=== PATIENT | male | born 1965 | race Caucasian/White ===

== ENCOUNTER 2024-07-09 11:35 | Day surgery (SDC) | payer OTHER, SELFPAY ==
[2024-07-09] VITALS (13 sets, daily range): BP systolic 103–165; BP diastolic 64–96; BMI 27.5
--- NOTE | 2024-07-09 08:19 | ED.GENMED ---
History of Present Illness
General
Chief Complaint: Abdominal Pain
Source: patient
Exam Limitations: none
Time Seen by Provider: 07/09/24 08:04
Nursing documentation reviewed up to this point in time: agreed with
History of Present Illness
History of Present Illness:
58-year-old male presents to the ER complaining of right lower quadrant pain. Patient reports he started with more of a generalized abdominal pain yesterday in the morning. He was nauseous with this pain and had a temp of 99. He reports today it
seems to localize to the right lower quadrant. He reports he is very uncomfortable he has. He is nauseous. no food since last night at 7 pm lst night. Pt has been sipping on water throughout the night.
Past History
Past History
ED Past Medical History: HTN, Psychiatric (Anxiety, and panic disorder) and Other (History of a hernia)
ED Past Surgical History: Other (Hernia repair and vasectomy)
Social History
Tobacco: Former smoker
Personal:
Living: with family
Employment: Student
Review of Systems
Review of Systems
Allergies reviewed?: Yes
All Other Systems: ROS reviewed and negative except as documented in HPI and ROS
Constitutional: Reports no symptoms; Denies fever
Respiratory: Reports no symptoms
Cardiac: Reports no symptoms
ABD/GI: Reports abdominal pain and nausea; Denies vomiting, diarrhea or constipated
: Reports no symptoms
Skin: Reports no symptoms
Neurological: Reports no symptoms
Psychiatric: Reports no symptoms
Phy Exam
General Physical Exam
General Presentation: no apparent distress
General age: appears stated age
General Skin: warm and dry
General Habitus: normal
General Mental: alert
General Hydration: appears well hydrated
Gastrointestinal Exam
Gastrointestinal Exam: soft and other (tender throughout the right lq region )
Neurological Exam
Neurological Exam: alert and oriented x3
Musculoskeletal Exam
Musculoskeletal Exam: full ROM
Skin Exam
Skin Exam: normal color and warm/dry
Psychiatric Exam
Psychiatric Exam: normal mood/affect
Course
Orders/Labs/Results
Orders:
Orders
07/09/24 Breakfast
NPO
Allow oral meds: No
Allow clear liquids: No
07/09/24 08:18
IV Insert/Care/Rem.- Treatment PRN
0.9% Sodium Chloride 1000 ml [Nss] 1,000 ml IV BOLUS
Morphine Sulfate 4 mg IV NOW STA
Ondansetron Injectable [Zofran] 4 mg IV NOW STA
07/09/24 08:19
Morphine Sulfate 4 mg .ROUTE .STK-MED ONE
Ondansetron Injectable [Zofran] 4 mg .ROUTE .STK-MED ONE
07/09/24 08:22
CT Abd/Pel (IV only)-DH only Urgent
Comment:
Reason For Exam: rlq pain
07/09/24 08:28
Complete Blood Count/With Diff Urgent
Comprehensive Metabolic Panel Urgent
Lipase Urgent
07/09/24 09:26
Lactic Acid Urgent
Urinalysis Reflex To Culture Urgent
Date Specimen was Collected: 07/09/24
Time Specimen was Collected: 09:19
07/09/24 10:18
HYDROmorphone [Dilaudid] 1 mg .ROUTE .STK-MED ONE
07/09/24 10:19
HYDROmorphone [Dilaudid] 1 mg IV NOW STA
07/09/24 10:37
Pneumatic Compression Sleeves As Directed
Type: Knee high
Teds [Anti-embolism (SRIRAM) Hose] As Directed
Type: Knee high
DX Deep Vein Thrombosis Video Routine
07/09/24 11:08
Midazolam HCl [Versed] 2 mg .ROUTE .STK-MED ONE
07/09/24 11:15
Normosol (Mult Electrolytes) [Normosol-R/Plasmalyte-A] 1,000 ml IV 100 mls/hr
07/09/24 11:21
Admit/Transfer Patient As Directed
Co-Sign Provider:
Level of Care: Observation services
Assign to:: Medical/Surgical
Physician / Group: Yadiel Godoy
Diagnosis: appendicitis
PRN Pain Medication Management As Directed
May give lesser potent ordered pain med per pt: Yes
preference::
Protocol:: Medication orders for pain may be administered in a
manner that supports deferring to patient preference
when the pt is:
- Requesting an ordered lesser potent pain medication.
Least to most potent pain medications are defined
as: acetaminophen < NSAID < tramadol < opioids
(morphine, oxycodone, hydromorphone).
- Requesting a lesser dose of the same medication IF
ORDERED.
- Requesting a less intrusive route of administration
if both routes are prescribed by the provider (PO <
IV).
07/09/24 11:22
Dexamethasone Sod Phosphate [Decadron] 20 mg .ROUTE .STK-MED ONE
Fentanyl Citrate/Pf [Sublimaze] 100 mcg .ROUTE .STK-MED ONE
Lidocaine 2% Mpf [Xylocaine Mpf 2%] 100 mg .ROUTE .STK-MED ONE
Ondansetron Injectable [Zofran] 4 mg .ROUTE .STK-MED ONE
Propofol [Diprivan] 20 ml .ROUTE .STK-MED
Rocuronium [place] [Rocuronium] 50 mg .ROUTE .STK-MED ONE
07/09/24 12:00
Ertapenem [Invanz] 1,000 mg 0.9% Sodium Chloride [Nss] 50 ml IV ONCE
Abnormal Lab Results
07/09/24 07/09/24
08:28 09:26
WBC 20.6 H 10^3/uL
(4.8-10.8)
MCH 31.6 H pg
(27.0-31.0)
Abs Immat Gran (auto) 0.1 H 10^3/uL
(0-0.05)
Absolute Neuts (auto) 17.6 H 10^3/uL
(1.4-6.5)
Absolute Monos (auto) 1.5 H 10^3/uL
(0.1-0.6)
Immature Gran % 0.7 H %
(0-0.5)
Neutrophils % 85.5 H %
(42.2-75.2)
Lymphocytes % 6.3 L %
(20.5-51.1)
Glucose 167 H mg/dl
(70-99)
Lactic Acid 2.8 H mmol/L
(0.7-2.0)
07/09/24 08:28
07/09/24 08:28
Vital Signs
Initial and Last Documented VS:
Initial Vital Signs
Temp Pulse Resp BP Pulse Ox
99 F 96 16 165/96 98
07/09/24 07:54 07/09/24 07:54 07/09/24 07:54 07/09/24 07:54 07/09/24 07:54
Last Documented Vital Signs
Temp Pulse Resp BP Pulse Ox
99 F 90 18 140/82 95
07/09/24 07:54 07/09/24 11:15 07/09/24 11:15 07/09/24 11:00 07/09/24 11:15
MDM/Problems Addressed
Differential Diagnosis Includes:
Not limited to appendicitis, less likely colitis or diverticulitis
MDM/Problems Addressed:
Patient is a 58 male who presents today with right lower quadrant pain since yesterday. On exam patient is tenderness of the right lower quadrant, he has nontachycardic temp is 99. He does present with an elevated white count of 20,000. CAT scan
does show acute pansinus without perforation. IV antibiotics and fluids were given. Case reviewed with Dr. Godoy of surgery discussed diagnosis and plan of care with patient . Pt to OR.
*Radiology
Radiology exam reviewed: radiology read reviewed
*Pulse Oximetry
Patient hypoxic: no
*Critical Care Note
Total Time (30-74mins, 75-104mins- exclusive of procedures): Not Applicable
Patient Management
Discussion with other providers: Nephrology Social Worker (DR Godoy )
ED Attending Note
-
Portions of this chart may have been created with voice recognition software.� Occasional wrong word or��sound alike� substitutions may have occurred due to the inherent limitations of voice recognition software.
Discharge Plan
Departure
Patient Disposition: OR
Date of Disposition: 07/09/24
Time of Disposition: 12:12
Admit to: Med/Surg
Admit to doctor: albino
Presentation/result/management discussed w/ accepting MD/DO: Hospitalist
Patient with high blood pressure during this ER visit?: Yes
Condition: Fair
Covid-19: Not Applicable
Discharge Problem:
Acute appendicitis
Interventions
Interventions:
*Risk Screen - Suicide Last Done: 07/09/24 07:56
*General Assessment Last Done: 07/09/24 08:31
*Neglect/Abuse Screening Last Done: 07/09/24 07:56
ED- Fall Risk Assessment Last Done: 07/09/24 08:31
*ED COVID-19 Vaccine History Last Done: 07/09/24 08:31
*Nursing Disposition Last Done: 07/09/24 11:45
VK-Crnrnt-Mpwfrosmhh Assessment Last Done: 07/09/24 08:33
Discharge Date and Time
Discharge Date/Time: 07/09/24 11:47
[2024-07-09] MEDS: NSS 1000 IV (08:26)
[2024-07-09] MEDS: ZOFRAN 4 MG IV (08:27)
[2024-07-09] MEDS: MORPHINE SULFATE 4 MG IV (08:27)
[2024-07-09 08:35] LABS: % Basophils 0.2 % (0-2); % Immature Granulocytes 0.7 % (0-0.5); % Lymphocytes 6.3 % (20.5-51.1); % Monocytes 7.3 % (1.7-9.3); % Neutrophils 85.5 % (42.2-75.2); Absolute Immature Granulocytes 0.1 10^3/uL (0-0.05); Absolute Lymphocytes 1.3 10^3/uL (1.2-3.4); Absolute Monocytes 1.5 10^3/uL (0.1-0.6); Absolute Neutrophils 17.6 10^3/uL (1.4-6.5); Hematocrit 41.8 % (39.0-52.0); Hemoglobin 15.2 g/dL (13.0-18.0); Mean Corp Hgb Conc. 36.4 g/dL (33.0-37.0); Mean Corpuscular Hgb 31.6 pg (27.0-31.0); Mean Corpuscular Volume 86.9 fL (80.0-94.0); Mean Platelet Volume 9.4 fL (7.4-10.4); Nucleated Red Blood Cells % 0 % (-); Platelet Count 262 10^3/uL (130-400); Red Blood Cell Count 4.81 10^6/uL (4.70-6.10); Red Cell Dist. Width 11.6 % (11.5-14.5); White Blood Cell Count 20.6 10^3/uL (4.8-10.8)
[2024-07-09 08:50] LABS: AST (SGOT) 22 U/L (17-59); Albumin 4.5 g/dl (3.5-5.0); Alkaline Phosphatase 75 U/L (38-126); Blood Urea Nitrogen 14 mg/dl (9-20); Calcium 10.2 mg/dl (8.4-10.2); Carbon Dioxide 22 mmol/L (22-30); Chloride 98 mmol/L (98-107); Estimated Creatinine Clearance 107 ml/min; Glucose 167 mg/dl (70-99); Lipase 72 U/L (23-300); Potassium 3.9 mmol/L (3.5-5.1); Sodium 135 mmol/L (135-145); Total Bilirubin 1.3 mg/dl (0.2-1.3); Total Protein 6.6 g/dl (6.3-8.2); eGFR > 60.00
[2024-07-09 09:06] LABS: ALT (SGPT) 28 U/L (0-50)
[2024-07-09 09:35] LABS: Urine Albumin Negative (Neg - Trace); Urine Bilirubin Negative (Negative); Urine Character Clear (Clear); Urine Color Yellow; Urine Glucose Negative (Negative); Urine Ketone Negative (Negative); Urine Leukocyte Negative (Negative); Urine Nitrite Negative (Negative); Urine Occult Blood Negative (Negative); Urine Specific Gravity 1.015 (<1.030); Urine Urobilinogen Negative (Neg - 1+)
[2024-07-09 09:45] LABS: Lactic Acid 2.8 mmol/L (0.7-2.0)
[2024-07-09] MEDS: DILAUDID 1 MG IV (10:19)
--- NOTE | 2024-07-09 10:58 | HPS.HSE ---
Family Physician
-
Family Physician: Thomas Ghotra
Chief Complaint
-
RLQ abdominal pain
History of Present Illness
58-year-old male presents to the emergency department complaining of right lower abdominal pain since yesterday morning. The patient states the pain continued to worsen and he was up all night given the pain. He had fevers and chills. He loss of
appetite. He had some nausea but no vomiting. His bowel movements have remained normal and his last one was yesterday afternoon. He denies any blood in his bowels. He denies a family history of rectal or colon cancer. His last colonoscopy was
at 22 years old. On arrival to the ER his white count is 20.6. CT of the abdomen and pelvis shows acute appendicitis. We will admit him for surgery.
Medical History
Past Medical History
Past Medical History: Reports Other
Additional Past Medical History:
BPH, history of anal fissure
Past Surgical History: Reports Other
Additional Past Surgical History:
Procedure [place] prolapsing hemorrh[place] [address] Hanley
Transanal hemorrhoid dearterial[place] [address] Hanley
Undescended testicle repair as a child
Hydrocele surgery
Social History
Tobacco: Former Smoker
Alcohol: None
Personal: Single
Family History
Family History: Not pertinent
Allergies / Home Medications
Allergies reflects when Allergies were last updated in [facility].
Home Medications with original date entered in [facility]
Allergy/Medication List:
Allergy - mold/pollen
Home medications:
Tadalafil - 5mg po daily
Review of Systems
-
History Source: Patient
A 12 point ROS was completed and negative except as noted: Yes
Abdomen/GI: Reports Abdominal Pain, Nausea and Vomiting
Physical Exam
Vital Signs
Vital Signs
Temp Pulse Resp BP Pulse Ox
99 F 84 10 149/80 98
07/09/24 07:54 07/09/24 10:15 07/09/24 10:15 07/09/24 10:00 07/09/24 10:15
Physical Exam
General: Well Developed
GI: Soft and Tender (RLQ)
Skin: Warm and Dry
Neuro: AO x 3
Laboratory Results
-
07/09/24 08:28
07/09/24 08:28
Laboratory Results
Lactic Acid 2.8 mmol/L (0.7-2.0) H 07/09/24 09:26
Total Bilirubin 1.3 mg/dl (0.2-1.3) 07/09/24 08:28
AST 22 U/L (17-59) 07/09/24 08:28
ALT 28 U/L (0-50) 07/09/24 08:28
Alkaline Phosphatase 75 U/L (38-126) 07/09/24 08:28
Lipase 72 U/L (23-300) 07/09/24 08:28
Data Reviewed
-
CT Scan: Image Personally Visualized and interpreted, Report Reviewed by me and Discussed with Patient
Lab Data: Labs Reviewed by me, Discussed with Physician and Discussed with Patient
Old Records: Reviewed
Impression/Plan
-
IMPRESSION: 58-year-old male with acute right lower quadrant pain, found to have acute appendicitis on CT scan
PLAN:
Spoke with the patient. I recommended the patient undergo a laparoscopic appendectomy due to the acute appendicitis. Other option is to treat with antibiotics and monitor labs. I went through the surgery itself including risks and benefits. The
patient has agreed to proceed for a laparoscopic appendectomy. NPO. Antibiotics. OR arrangements in place.
--- NOTE | 2024-07-09 13:30 | W.IMMPOSTOP ---
Surgical Immed Post Op Note
-
Primary Surgeon: Yadiel Godoy MD
Pre-op Diagnosis: Acute appendicitis
Post-op Diagnosis: Same, with local perforation
Procedure Performed: Laparoscopic appendectomy
Anesthesia Type: GET
Specimen / Cultures: Appendix
Estimated Blood Loss: 10cc
Complications: None
Operative Findings: Small amount of purulence at the base of the appendix
Perforation at the base of the appendix
Patient's sister updated via telephone
[2024-07-09] MEDS: NORMOSOL-R/PLASMALYTE-A 1000 IV ×2 (14:19→20:15)
[2024-07-09] MEDS: TYLENOL 650 MG PO ×3 (16:23→23:45)
[2024-07-09] MEDS: TORADOL 15 MG IV (20:14)
[2024-07-10] MEDS: TORADOL 15 MG IV ×4 (01:42→19:40)
[2024-07-10 03:19] VITALS: BP 108/66
[2024-07-10] MEDS: TYLENOL 650 MG PO ×6 (03:52→23:55)
[2024-07-10 06:00] VITALS: BMI 27.9
[2024-07-10 06:19] LABS: % Basophils 0.1 % (0-2); % Eosinophils 0.1 % (0-6); % Immature Granulocytes 0.5 % (0-0.5); % Lymphocytes 6.9 % (20.5-51.1); % Monocytes 6.5 % (1.7-9.3); % Neutrophils 85.9 % (42.2-75.2); Absolute Immature Granulocytes 0.1 10^3/uL (0-0.05); Absolute Lymphocytes 1.1 10^3/uL (1.2-3.4); Absolute Neutrophils 13.4 10^3/uL (1.4-6.5); Hematocrit 37.8 % (39.0-52.0); Hemoglobin 12.9 g/dL (13.0-18.0); Mean Corp Hgb Conc. 34.1 g/dL (33.0-37.0); Mean Corpuscular Volume 90.9 fL (80.0-94.0); Mean Platelet Volume 10.1 fL (7.4-10.4); Nucleated Red Blood Cells % 0 % (-); Platelet Count 252 10^3/uL (130-400); Red Blood Cell Count 4.16 10^6/uL (4.70-6.10); Red Cell Dist. Width 11.9 % (11.5-14.5); White Blood Cell Count 15.6 10^3/uL (4.8-10.8)
[2024-07-10 06:54] LABS: Blood Urea Nitrogen 13 mg/dl (9-20); Calcium 8.6 mg/dl (8.4-10.2); Carbon Dioxide 27 mmol/L (22-30); Chloride 100 mmol/L (98-107); Estimated Creatinine Clearance 107 ml/min; Glucose 129 mg/dl (70-99); Potassium 4.1 mmol/L (3.5-5.1); Sodium 138 mmol/L (135-145); eGFR > 60.00
[2024-07-10 07:21] VITALS: BP 108/64
[2024-07-10] MEDS: NORMOSOL-R/PLASMALYTE-A 1000 IV ×2 (07:57→19:39)
--- NOTE | 2024-07-10 11:08 | W.PN.CRS1 ---
Today's Communication / Plan
-
Continue on clears
Lovenox
Continue IV antibiotics
Assessment/Plan
-
Postop day 1 appendectomy for perforated appendix
-WBC 15.6 from 20.6. Afebrile overnight. Continue IV antibiotics.
-Out of bed as tolerated
-Continue on clears. When has flatus may advance to full's.
-Okay to shower
-OR pathology pending
-Start Lovenox for DVT prophylaxis. Teds and SCDs in place.
-Pain control: Tylenol and Toradol standing, Dilaudid as needed.
Subjective Data
Subjective Data
Date of Service: July 10, 2024
Patient states he is 'wiped out'. He has not had any gas yet. He has some intermittent nausea.
Objective Data
-
Vital Signs
Temp Pulse Resp BP Pulse Ox
98.3 F 64 14 108/64 98
07/10/24 07:21 07/10/24 07:21 07/10/24 07:21 07/10/24 07:21 07/10/24 07:21
Intake & Output
07/09/24 07/10/24 07/11/24
06:59 06:59 06:59
Intake Total 2370 / 2370
Output Total 3050 / 3050
Balance -680 / -680
Intake:
Oral fluids 520 / 520
IV fluids (Total) 1850 / 1850
Normosal 150 / 150
Output:
Urine, Voided 3050 / 3050
Lab Results
07/10/24 04:52
07/10/24 04:52
Physical Exam
-
General: No Acute Distress and AOx3
Abdomen: Soft, Non Distended and Tender (Around incision site)
Skin: Warm and Dry
Incision: Clear, Dry, Intact
[2024-07-10 11:21] VITALS: BP 117/72
--- NOTE | 2024-07-10 11:36 | CM ---
Pt seen at bedside. Pt lives alone in a two story home.
Denies SNF/HC in the past
Denies any DME
Denies food/housing/transportation insecurities
Pt states he will drive himself home at d/c and doesn't have a back up. Transport assistance will be provided if needed.
OBS form reviewed, provided a copy to pt. Copy put into chart
Plan: Home w/ no needs
[2024-07-10] MEDS: INVANZ 60 MG IV (12:23)
[2024-07-10 14:58] VITALS: BP 114/69
[2024-07-10] MEDS: LOVENOX 40 MG SC (17:36)
[2024-07-10 23:34] VITALS: BP 130/79
[2024-07-11] MEDS: TORADOL 15 MG IV ×3 (02:12→14:29)
[2024-07-11] MEDS: TYLENOL 650 MG PO ×4 (03:25→15:53)
[2024-07-11 06:00] VITALS: BMI 28.2
[2024-07-11 07:22] VITALS: BP 118/74
--- NOTE | 2024-07-11 09:28 | CM ---
Patient seen at bedside.
monitoring labs, full liq diet
no needs anticipated
PLAN: Discharge when stable to home, no needs
Transport self home
--- NOTE | 2024-07-11 09:35 | W.PN.CRS1 ---
Today's Communication / Plan
-
regular diet
d/c ivfs
cbc
?discharge later today
Assessment/Plan
-
Postop day 2 appendectomy for perforated appendix
-WBC pending. Afebrile overnight. Continue IV antibiotics.
-Out of bed as tolerated
-Advance to a regular diet.
-Okay to shower
-OR pathology pending
-Lovenox for DVT prophylaxis. Teds and SCDs in place.
-Pain control: Tylenol and Toradol standing, Dilaudid as needed.
-Will continue antibiotics for a total of 5 days
-Possible d/c later today if tolerates a regular diet
-D/C IVFs
Subjective Data
Subjective Data
Date of Service: July 11, 2024
Patient states he is having bowel movements and flatus. He also had some nausea overnight which has resolves. Currently he states he is sore.
Objective Data
-
Vital Signs
Temp Pulse Resp BP Pulse Ox
98.8 F 68 16 118/74 97
07/11/24 07:22 07/11/24 07:22 07/11/24 07:22 07/11/24 07:22 07/11/24 07:22
Intake & Output
07/10/24 07/11/24 07/12/24
06:59 06:59 06:59
Intake Total 2370 / 2370 3420 / 3420
Output Total 3050 / 3050 2350 / 2350
Balance -680 / -680 1070 / 1070
Intake:
Oral fluids 520 / 520 1620 / 1620
IV fluids (Total) 1850 / 1850 1800 / 1800
Normosal 150 / 150
Output:
Urine, Voided 3050 / 3050 2350 / 2350
Lab Results
07/10/24 04:52
Physical Exam
-
General: No Acute Distress and AOx3
Abdomen: Soft, Non Distended and Tender (around incision sites)
Skin: Warm and Dry
Incision: Clear, Dry, Intact
[2024-07-11] MEDS: NORMOSOL-R/PLASMALYTE-A IV (10:09)
[2024-07-11 10:27] LABS: % Basophils 0.3 % (0-2); % Eosinophils 2.3 % (0-6); % Immature Granulocytes 0.5 % (0-0.5); % Lymphocytes 17.2 % (20.5-51.1); % Monocytes 9.7 % (1.7-9.3); Absolute Eosinophils 0.2 10^3/uL (0-0.7); Absolute Immature Granulocytes 0.1 10^3/uL (0-0.05); Absolute Lymphocytes 1.8 10^3/uL (1.2-3.4); Absolute Neutrophils 7.4 10^3/uL (1.4-6.5); Hematocrit 37.1 % (39.0-52.0); Hemoglobin 12.6 g/dL (13.0-18.0); Mean Corpuscular Hgb 31.2 pg (27.0-31.0); Mean Corpuscular Volume 91.8 fL (80.0-94.0); Mean Platelet Volume 9.9 fL (7.4-10.4); Nucleated Red Blood Cells % 0 % (-); Platelet Count 259 10^3/uL (130-400); Red Blood Cell Count 4.04 10^6/uL (4.70-6.10); Red Cell Dist. Width 11.9 % (11.5-14.5); White Blood Cell Count 10.6 10^3/uL (4.8-10.8)
[2024-07-11] MEDS: INVANZ 60 MG IV (11:52)
[2024-07-11 14:25] VITALS: BP 127/67
== END 2024-07-11 17:04 | disposition home or self-care (01) ==
LOC: SDS 11:35
PROVIDERS: Nurse Practitioner; Physician Assistant; ATTENDING PHYSICIAN Surgery; EMERGENCY PHYSICIAN Emergency Medicine; FAMILY PHYSICIAN Internal Medicine
DX: K35.80 Unspecified acute appendicitis (principal)
CPT/HCPCS: 44970; 88304; 74177; 80048; 80053; 81003; 83605; 83690; 85025; 96361; 96374; 96375; 99285; C1776; G0378; J1335; Q9967

== ENCOUNTER → 2024-11-14 14:20 | Outpatient (REF) | payer OTHER, SELFPAY | LOC: HWRAD 14:20 | PROVIDERS: ATTENDING PHYSICIAN Urology; FAMILY PHYSICIAN Internal Medicine | DX: N43.41 Spermatocele of epididymis, single (principal) | CPT/HCPCS: 76870; 93976 ==

== ENCOUNTER 2025-08-13 06:13 | Day surgery (SDC) | payer OTHER, SELFPAY | END 2025-08-13 10:59 | disposition home or self-care (01) | LOC: GI 06:13 | PROVIDERS: ATTENDING PHYSICIAN Internal Medicine Gastroenterology | DX: Z12.11 Encounter for screening for malignant neoplasm of colon (principal); K62.89 Other specified diseases of anus and rectum; K63.5 Polyp of colon | CPT/HCPCS: 45380; 88305 ==